=== PATIENT | female | born 1985 | race African-American/Black ===

== ENCOUNTER 2018-08-27 09:52 | Emergency (ER) | payer BC ==
[~2018-08-27] VITALS: Ht 160 cm; Wt 74.8 kg
[2018-08-27] MEDS ORDERED: NKM (10:09)
--- NOTE | 2018-08-27 10:16 | NUR ---
ED Nurse Note: pt walked in due to pain on the left knee, pt stated she was roller skating last night and fell on the skating rink, denies head trauma. pt is limping when walking and complaining of 10/10 pain, pt stated she took tylenol for pain last night. will continue to monitor.
--- NOTE | 2018-08-27 10:58 | NUR ---
ED Nurse Note: xray on bedside
--- NOTE | 2018-08-27 11:12 | Diagnostic Imaging Report ---
INDICATION: Knee Pain COMPARISON: None 3 views of the left knee were obtained. FINDINGS: No acute fracture, malalignment, or joint effusion are identified. Joint space is relatively well-maintained. Impression: Negative for acute injury
--- NOTE | 2018-08-27 11:25 | NUR ---
ED Nurse Note: ebonie wrap placed on pt left knee, circulation checked, pt able to feel left toes, will continue to monitor.
[2018-08-27] MEDS ORDERED: TYLENOL EXTRA500 MG ORAL (11:36)
[2018-08-27 11:47] VITALS: BP 140/88
--- NOTE | 2018-08-27 11:47 | NUR ---
ER DISCHARGE NOTE: Patient is cleared to be discharged per ERMD, pt is aox4, on room air, with stable vital signs. pt was given dc and prescription instructions, pt was able to verbalize understanding, pt id band removed without complications. pt is able to ambulate with steady gait using crutches. pt took all belongings.
--- NOTE | 2018-08-27 15:29 | Emergency Room Report ---
History of Present Illness General Chief Complaint: Lower Extremity Injury Source: Patient Present Illness HPI 33-year-old female presents ED for evaluation. Complaining of left knee pain states that she twisted her knee while roller blading yesterday. Pain is throbbing, 5 out of 10, nonradiating. Notes pain but is able to bear weight. Denies any other injuries. No other aggravating relieving factors. Denies any other associated symptoms Allergies: Coded Allergies: No Known Allergies (Unverified , 08/27/18) Patient History Past Medical History: none Past Surgical History: none Pertinent Family History: none Social History: Denies: smoking, alcohol use, drug use Last Menstrual Period: 06/14/18 Now: No Immunizations: UTD Reviewed Nursing Documentation: PMH: Agreed; PSxH: Agreed Nursing Documentation-PMH Past Medical History: No Stated History Review of Systems All Other Systems: negative except mentioned in HPI Physical Exam Vital Signs Date Time Temp Pulse Resp B/P (MAP) Pulse Ox O2 Delivery O2 Flow Rate FiO2 08/27/18 10:04 98.2 77 16 157/99 (118) 100 Room Air Sp02 EP Interpretation: reviewed, normal General Appearance: no apparent distress, alert, GCS 15, non-toxic Head: normocephalic Eyes: bilateral eye normal inspection, bilateral eye PERRL ENT: normal ENT inspection Neck: normal inspection Respiratory: normal inspection Cardiovascular #1: normal inspection Gastrointestinal: normal inspection Rectal: deferred Genitourinary: no CVA tenderness Musculoskeletal: tender - L knee Neurologic: alert, oriented x3, responsive, motor strength/tone normal, sensory intact, speech normal Psychiatric: normal inspection Skin: normal inspection Lymphatic: normal inspection Procedures Splinting Splinting : Consent: Verbal Pre-Made Type: CORY wrap Pre-Proc Neuro Vasc Exam: normal Post-Proc Neuro Vasc Exam: normal Patient Tolerated: Well Complications: None Medical Decision Making Diagnostic Impression: Primary Impression: Knee sprain Qualified Codes: S83.92XA - Sprain of unspecified site of left knee, initial encounter ER Course Hospital Course 33-year-old F presents to ED complaining of L knee pain s/p trip and fall Differential diagnoses include: Fracture, dislocation, sprain, contusion Clinical course Patient placed on stretcher. After initial history and physical, I ordered pain medications and Xrays of L knee Xrays prelim read shows no acute fracture/dislocation. placed in cory wrap, given crutches Discussed findings with patient. Likely ligamentous versus sprain. Recommend ice, NSAIDs, elevation, modified activity. Safe for discharge with close outpatient follow-up. We'll provide ortho referrals Diagnosis - knee sprain Stable and discharged to home with prescription for tylenol. apply ice, keep elevated. weight bear as tolerated. Followup with PMD. Return to ED if symptoms recur or worsen Other X-Ray Diagnostic Results Other X-Ray Diagnostic Results : X-Ray ordered: L knee # of Views/Limited Vs Complete: 3 View Indication: Pain EP Interpretation: Yes Interpretation: no dislocation, no soft tissue swelling, no fractures Impression: No acute disease Electronically Signed by: Electronically signed by Marc Tenorio MD Last Vital Signs Date Time Temp Pulse Resp B/P (MAP) Pulse Ox O2 Delivery O2 Flow Rate FiO2 08/27/18 11:47 98.3 78 16 140/88 100 Room Air Status: improved Disposition: HOME, SELF-CARE Condition: Stable Scripts Acetaminophen* (TYLENOL EXTRA STRENGTH*) 500 Mg Tablet 500 MG ORAL Q8H PRN for Prn Headache/Temp > 101, #30 TAB 0 Refills Prov: Marc Tenorio MD 08/27/18 Referrals: NON PHYSICIAN (PCP) [facility] Open 24 hour /7 days a week by Appointment Only [address] [facility] [address] Patient Instructions: Knee Sprain, [id number] aMrc Tenorio MD August 27, 2018 15:29
== END 2018-08-27 11:47 | disposition home or self-care (01) ==
LOC: EMR 10:31
DX: S83.92XA Sprain of unspecified site of left knee, initial encounter (principal); X50.1XXA Overexertion from prolonged static or awkward postures, initial encounter; Y93.51 Activity, roller skating (inline) and skateboarding; Y92.89 Other specified places as the place of occurrence of the external cause
CPT/HCPCS: 99283